=== PATIENT | male | born 1980 ===

== ENCOUNTER 2018-07-05 18:02 | Emergency (ER) | payer SELFPAY ==
[2018-07-05] MEDS ORDERED: Sodium Chloride 0.9% 1,000 ML IV STA (18:46)
--- NOTE | 2018-07-05 18:48 | ED PDOC ---
HPI: Chest Pain Time Seen by Provider: 07/05/18 18:29 Chief Complaint (Nursing): Chest Pain Chief Complaint (Provider): chest pain History Per: Patient History/Exam Limitations: no limitations Onset/Duration Of Symptoms: Days Current Symptoms Are (Timing): Better Severity: Mild Quality: Sharp Associated Symptoms: denies: Nausea Modifying Factors: None Exacerbating Factors: Exertion Additional History Per: Patient Additional Complaint(s): 38 year old male with no medical history presents to the ED c/o sharp left sided chest pain, non radiating started yesterday while at work. 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 Patient states when he became lightheaded with chest pain for which he went home and slept for the rest of the day. Upon waking up he felt better. 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 Patient denies fever, chills, bodyaches, nausea and vomiting. - Risk Factors PE Risk Factors: Neg: Extremity Immobilization/Fx, Decreased Mobilty /Activity, Recent Major Surgery, Recent Hospitalization, Active Cancer, Previous DVT, Previous PE, CHF, Venous Stasis, Estrogen Usage, , Post-, Recent Major Trauma Past Medical History Reviewed: Historical Data, Nursing Documentation, Vital Signs Vital Signs: Last Vital Signs Temp 98.4 F 07/05/18 18:11 Pulse 74 07/05/18 18:36 Resp 16 07/05/18 18:36 BP 142/90 07/05/18 18:36 Pulse Ox 100 07/05/18 18:36 Primary Care Provider: FAMILY PROVIDER,NO - Medical History PMH: No Chronic Diseases - Surgical History Surgical History: No Surg Hx - Family History Family History: States: Unknown Family Hx - Living Arrangements Living Arrangements: With Family - Social History Alcohol: None Drugs: Denies - Immunization History Hx Tetanus Toxoid Vaccination: No Hx Influenza Vaccination: Yes Hx Pneumococcal Vaccination: No - Allergies Allergies/Adverse Reactions: Allergies Allergy/AdvReac Type Severity Reaction Status Date / Time No Known Allergies Allergy Verified 07/05/18 18:20 ERICK Risk Score for UA/NSTEMI - ERICK Risk Score Age > 64: NO 3 or more CAD Risk Factors: NO Known CAD (Stenosis greater than 50%): NO Aspirin use in past 7 days: NO Severe Angina: NO EKG ST changes greater than 0.5mm: NO Positive Cardiac Marker: NO ERICK Score: 0 Risk %: 5% Curb-65 Severity Score - CURB-65 Severity Score Confusion: No Bun >19mg/dl (>7mmol/L): No Respiratory Rate greater than/equal to 30: No Systolic BP <90 or Diastolic BP less than/equal 60mmHg: No Age >64: No Curb-65 Score: 0 Percentage 30-day mortality: 0.6% Wells Criteria for PE - Wells Criteria for Pulmonary Embolism Clinical Signs and Symptoms of DVT: No P.E is #1 Diagnosis, or Equally Likely: No Heart Rate >100: No Immobilization at least 3 days;Surgery previous 4 weeks: No Previous, objectively diagnosed PE or DVT: No Hemoptysis: No Malignancy w/treatment within 6 months, or palliative: No Total Score: 0 Review of Systems ROS Statement: Except As Marked, All Systems Reviewed And Found Negative Constitutional: Positive for: Malaise. Negative for: Fever, Chills, Sweats, Weakness Eyes: Negative for: Pain, Vision Change, Eyelid Inflammation, Redness ENT: Negative for: Ear Pain, Nose Pain, Mouth Pain, Throat Pain, Throat Swelling Cardiovascular: Positive for: Chest Pain, Light Headedness. Negative for: Palpitations, Paroxysmal Noc. Dyspnea, Edema Respiratory: Positive for: Shortness of Breath, SOB with Exertion. Negative for: Cough, Wheezing Gastrointestinal: Negative for: Nausea, Vomiting, Abdominal Pain Genitourinary Male: Negative for: Dysuria Musculoskeletal: Negative for: Neck Pain, Shoulder Pain, Back Pain, Leg Pain Skin: Negative for: Rash Neurological: Positive for: Weakness. Negative for: Incoordination, Confusion, Altered Mental Status, Headache, Dizziness Physical Exam - Reviewed Nursing Documentation Reviewed: Yes Vital Signs Reviewed: Yes - Physical Exam Appears: Positive for: Well, Non-toxic, No Acute Distress Head Exam: Positive for: ATRAUMATIC, NORMAL INSPECTION, NORMOCEPHALIC Skin: Positive for: Normal Color, Warm, Dry (dry mucous membranes). Negative fo r: Diaphoresis, Pallor, Rash Eye Exam: Positive for: EOMI, Normal appearance, PERRL ENT: Positive for: Normal ENT Inspection Neck: Positive for: Normal, Painless ROM, Supple Cardiovascular/Chest: Positive for: Regular Rate, Rhythm, Chest Non Tender. Negative for: Edema Respiratory: Positive for: CNT, Normal Breath Sounds Pulses-Radial (L): 2+ Pulses-Radial (R): 2+ Gastrointestinal/Abdominal: Positive for: Normal Exam, Bowel Sounds (normoactive ), Soft. Negative for: Tenderness, Distended Back: Positive for: Normal Inspection. Negative for: L CVA Tenderness, R CVA Te nderness Extremity: Positive for: Normal ROM. Negative for: Deformity Neurological/Psych: Positive for: Awake, Alert, Normal Tone, Oriented - Laboratory Results Result Diagrams: 07/05/18 19:00 07/05/18 19:00 - ECG O2 Sat by Pulse Oximetry: 100 Medical Decision Making Medical Decision Making: --CBC --CMP --TROPONIN --D-DIMER --CHEST XRAY --UA --0.9NS L -- CPK 20:48 labs reviewed by me. Patient re-assessed patient is comfortable in bed. Patient denies having flank pain and abdominal pain due to urine results. Noted elevated AST: 90 ALT: 122. Urine large blood and RBC 120. added CPK to r/o rhabdomyosis. D-Dimer pending. Patient endorsed to Mildred Jiang to follow-up on blood work and disposition. Disposition - Clinical Impression Clinical Impression: Chest pain - Patient ED Disposition Is Patient to be Admitted: Transfer of Care - Disposition Disposition: Transfer of Care Disposition Time: 20:48 Condition: STABLE Forms: [employer] (Telugu) Patient Signed Over To: Mildred Weems Handoff Comments: follow-up on labs and cxr - POA Present On Arrival: None
[2018-07-05 19:04] LABS: BASO # 0.1 K/uL (0.0-0.2); BASO % 0.8 % (0.0-2.0); EOS # 0.6 K/uL (0.0-0.7); EOS % 6.2 % (0.0-4.0); HEMOGLOBIN 15.2 g/dL (12.0-18.0); LYMPH # 2.2 K/uL (1.0-4.3); LYMPH % 25.2 % (20.0-40.0); MEAN CELL VOLUME 87.2 fl (80.0-94.0); MEAN CORPUSCULAR HEMOGLOBIN 29.6 pg (27.0-31.0); MEAN CORPUSCULAR HGB CONC 33.9 g/dL (33.0-37.0); MEAN PLATELET VOLUME 8.6 fl (7.2-11.7); MONO # 0.7 K/uL (0.0-0.8); MONO % 7.8 % (0.0-10.0); NEUT # 5.3 K/uL (1.8-7.0); NRBC % 0.1 % (0.0-0.0); RBC 5.14 Mil/uL (4.40-5.90); RED CELL DISTRIBUTION WIDTH 14.4 % (11.5-14.5); WHITE BLOOD COUNT 8.8 K/uL (4.8-10.8)
[2018-07-05 19:11] LABS: SQUAMOUS EPITHIAL < 1 /hpf (0-5); URINE BILIRUBIN NEGATIVE (NEGATIVE); URINE BLOOD LARGE (NEGATIVE); URINE CLARITY SLIGHTY-CLOUDY (Clear); URINE COLOR AMBER (YELLOW); URINE GLUCOSE (UA) NEG (NEGATIVE); URINE LEUKOCYTE ESTERASE NEG Leu/uL (Negative); URINE PROTEIN 30 mg/dL (NEGATIVE)
[2018-07-05 19:24] LABS: ALB/GLOB RATIO 1.5 (1.0-2.1); ALBUMIN 4.8 g/dL (3.5-5.0); ALT/SGPT 122 U/L (21-72); AST/SGOT 90 U/L (17-59); BLOOD UREA NITROGEN 20 mg/dl (9-20); CALCIUM 8.8 mg/dL (8.4-10.2); GFR NON-AFRICAN AMERICAN > 60
[2018-07-05 19:35] LABS: B-TYPE NATRIURETIC PEPTIDE 17.9 pg/ml (0-450)
--- NOTE | 2018-07-05 21:14 | ED PDOC ---
- Laboratory Results Result Diagrams: 07/05/18 19:00 07/05/18 19:00 Lab Results: D-Dimer, Quantitative < 200 ng/mlDDU (0-230) 07/05/18:55 Troponin I < 0.0120 ng/mL (0.00-0.120) 07/05/18 19:00 NT-Pro-B Natriuret Pep 17.9 pg/ml (0-450) 07/05/18 19: Total Bilirubin 1.3 mg/dl (0.2-1.3) 07/05/18 19:00 AST 90 U/L (17-59) H 07/05/18 19: ALT 122 U/L (21-72) H 07/05/18 19:00 Alkaline Phosphatase 59 U/L (38-126) 07/05/18 19:00 Total Protein 8.0 G/DL (6.3-8.2) 07/05/18: Albumin 4.8 g/dL (3.5-5.0) 07/05/18: Globulin 3.2 gm/dL (2.2-3.9) 07/05/18 19: Albumin/Globulin Ratio 1.5 (1.0-2.1) 07/05/18:00 Urine Color [place] (YELLOW) 07/05/18: Urine Clarity Slighty-cloudy (Clear) 07/05/18 19: Urine pH 5.0 (5.0-8.0) 07/05/18 19: Ur Specific [place] 1.038 (1.003-1.030) H 07/05/18 19: Urine Protein 30 mg/dL (NEGATIVE) 07/05/18 19: Urine Glucose (UA) Neg mg/dL (NEGATIVE) 07/05/18 19: Urine Ketones Negative mg/dL (NEGATIVE) 07/05/18: Urine Blood Large (NEGATIVE) 07/05/18: Urine Nitrate Negative (NEGATIVE) 07/05/18 19: Urine Bilirubin Negative (NEGATIVE) 07/05/18 19: Urine Urobilinogen 4.0 mg/dL (0.2-1.0) 07/05/18 19: Ur Leukocyte Esterase Neg Brandy/uL (Negative) 05/22/19 19:00 Urine RBC (Auto) 120 /hpf (0-3) H 07/05/18 19:00 Urine Microscopic WBC 2 /hpf (0-5) 07/05/18 19:00 Ur Squamous Epith Cells < 1 /hpf (0-5) 07/05/18 19:00 - ECG O2 Sat by Pulse Oximetry: 100 - Progress ED Course And Treament: case endorsed to magnetic tape typewriter operator from Joan WALTER pending labs, re-eval 21:10 Patient resting comfortably; no symptoms currently Patient educated on findings, including hematuria, elevated LFTs on labs, discharged with instructions to follow up PMD within 2-3 days Return precautions given Disposition - Clinical Impression Clinical Impression: Chest pain, Hematuria, Elevated liver function tests - POA Present On Arrival: None - Disposition Referrals: [facility] [Outside] Alonso Mohan Jr., MD [Staff Provider] - Disposition: Routine/Home Disposition Time: 21:10 Condition: IMPROVED Instructions: Blood in the Urine (Hematuria) in Adults, Chest Pain
[2018-07-05 22:39] VITALS: BP 127/80; PULSE 78; RESP 17; TEMP 98.5; O2SAT 99
--- NOTE | 2018-07-06 13:56 | RAD ---
Date of service: 07/05/2018 HISTORY: Chest pain; SOB. COMPARISON: No prior. TECHNIQUE: Chest PA and lateral views FINDINGS: LUNGS: No active pulmonary disease. PLEURA: No significant pleural effusion identified. No pneumothorax apparent. CARDIOVASCULAR: No aortic atherosclerotic calcification present. Normal cardiac size. No pulmonary vascular congestion. OSSEOUS STRUCTURES: No significant abnormalities. VISUALIZED UPPER ABDOMEN: Normal. OTHER FINDINGS: None. IMPRESSION: No active disease.
== END 2018-07-05 21:55 | disposition home or self-care (01) ==
LOC: H.ER 18:02
DX: R07.9 Chest pain, unspecified (principal); R31.9 Hematuria, unspecified